=== PATIENT | male | born 1970 | race Caucasian/White ===

== ENCOUNTER 2021-01-01 19:59 | Emergency (ER) | payer BC ==
[2021-01-01 20:04] VITALS: BP 119/80; TEMP 98.1; BMI 25.0
[2021-01-01] MEDS ORDERED: predniSONE 20 MG TABLET (UD) PO ONE (20:08)
[2021-01-01] MEDS ORDERED: SODIUM CHLORIDE 500 ML IV STA (20:22)
[2021-01-01] MEDS ORDERED: MAGNESIUM SULF 50% (8.12 MEQ/2 ML-1 GM VIAL) IVPB ONE (20:22)
[2021-01-01] MEDS: ALBUTEROL SO4 2.5/IPRATROPIUM 0.5 INH SOL 3 ML VIAL.NEB. NEB SCH ×4 (20:28→20:59)
[2021-01-01] MEDS ORDERED: methylPREDNISolone NA SUCC 125 MG/2 ML VIAL IVPB ONE (20:43)
[2021-01-01] MEDS ORDERED: predniSONE 20 MG TABLET (UD) ONE (20:48)
[2021-01-01] MEDS ORDERED: MAGNESIUM 1GM/D5W - 1 GM/100 ML IVPB IVPB ONE ×2 (20:48→21:09)
[2021-01-01 21:02] LABS: BASO % 0.9 % (0-2.0); EOS % 11.3 % (0-4.5); HEMATOCRIT 44.6 % (35.4-49); HEMOGLOBIN 15.1 GM/dL (11.7-16.9); LYMPH % 40.2 % (8-40); MCH 29.5 pg (25.7-33.7); MCHC 33.9 g/dl (32.0-35.9); MEAN CELL VOLUME 87.1 fl (80-96); MEAN PLT VOLUME 7.8 fl (7.5-11.1); MONO % 7.9 % (3.8-10.2); NEUT % 39.7 % (42.8-82.8); PLATELET COUNT 237 10^3/uL (134-434); RBC 5.12 M/mm3 (4.00-5.60); RDW 13.3 % (11.9-15.9); WHITE BLOOD COUNT 6.8 K/mm3 (4.0-10.0)
[2021-01-01] MEDS ORDERED: methylPREDNISolone NA SUCC 125 MG/2 ML VIAL ONE (21:09)
[2021-01-01] MEDS ORDERED: MAGNESIUM SULFATE IN WATER 2 GM/50 ML IVPB IVPB ONE (21:12)
[2021-01-01 21:29] LABS: ALBUMIN 3.6 g/dl (3.4-5.0); BLOOD UREA NITROGEN 12.3 mg/dL (7-18); CALCIUM 8.8 mg/dL (8.5-10.1)
[2021-01-01 21:34] LABS: BILIRUBIN,TOTAL 0.2 mg/dL (0.2-1)
[2021-01-01 22:56] VITALS: PULSE 82
== END 2021-01-01 23:21 | disposition home or self-care (01) ==
LOC: JER 19:59
PROC: 3E0F7GC Introduction of Other Therapeutic Substance into Respiratory Tract, Via Natural or Artificial Opening (ICD-10-PCS; principal; 2021-01-01)
PROC: 3E033GC Introduction of Other Therapeutic Substance into Peripheral Vein, Percutaneous Approach (ICD-10-PCS; 2021-01-01)
PROC: 3E033GC Introduction of Other Therapeutic Substance into Peripheral Vein, Percutaneous Approach (ICD-10-PCS; 2021-01-01)
PROC: 3E0337Z Introduction of Electrolytic and Water Balance Substance into Peripheral Vein, Percutaneous Approach (ICD-10-PCS; 2021-01-01)
DX: J45.41 Moderate persistent asthma with (acute) exacerbation (principal)
CPT/HCPCS: 36415; 71046-TC-FY; 80053; 85025; 93005; 93010; 99285-25

== ENCOUNTER 2021-10-23 22:54 | Emergency (ER) | payer BC ==
[2021-10-23] MEDS ORDERED: KETOROLAC TROMETHAMINE 60 MG/2 ML VIAL IM ONE (23:04)
[2021-10-23] MEDS ORDERED: KETOROLAC TROMETHAMINE 60 MG/2 ML VIAL ONE (23:31)
[2021-10-23 23:33] VITALS: BP 121/86; PULSE 100; RESP 18; TEMP 98.7; BMI 26.6
== END 2021-10-24 00:15 | disposition home or self-care (01) ==
LOC: FER 22:54
PROC: 3E0233Z Introduction of Anti-inflammatory into Muscle, Percutaneous Approach (ICD-10-PCS; principal; 2021-10-23)
DX: M25.512 Pain in left shoulder (principal)
CPT/HCPCS: 73030-TC-LT-FY; 99284-25

== ENCOUNTER 2021-10-25 18:50 | Emergency (ER) | payer BC ==
[2021-10-25 19:05] VITALS: BP 136/86; RESP 98; TEMP 99.9; BMI 26.6
== END 2021-10-25 19:53 | disposition home or self-care (01) ==
LOC: FER 18:50
DX: M25.512 Pain in left shoulder (principal)
CPT/HCPCS: 99283-25